=== PATIENT | female | born 1990 | race Caucasian/White ===

== ENCOUNTER 2018-01-03 13:13 | Emergency (ER) | payer SELFPAY ==
[2018-01-03 13:26] VITALS: TEMP 99.9
[2018-01-03] MEDS ORDERED: SODIUM CHLORIDE 0.9% 1000ML 1,000 ML IVS ONE (13:54)
[2018-01-03] MEDS ORDERED: ONDANSETRON INJ 4 MG/2 ML VIAL IV ONE (13:54)
--- NOTE | 2018-01-03 14:34 | RAD ---
PROCEDURE: XR Chest, 2 Views CLINICAL INDICATION: The patient is 27 years old and is Female; cough TECHNIQUE: Frontal and lateral views of the chest. COMPARISON: No relevant prior studies available. FINDINGS: LUNGS: Unremarkable. No consolidation. EKG leads incidentally noted. PLEURAL SPACE: Unremarkable. No pneumothorax. HEART: Unremarkable. No cardiomegaly. MEDIASTINUM: Unremarkable. BONES/JOINTS: Unremarkable.No acute fracture noted. No dislocation. IMPRESSION: No active disease is seen in the chest. Electronically signed by: Amauri Johnson MD 01/03/2018 2:32 PM CDT
[2018-01-03 15:31] VITALS: BP 118/52; O2SAT 99
--- NOTE | 2018-01-03 15:45 | ED.PDOC ---
History of Present Illness - General Chief Complaint: Fever Stated Complaint: cough, fever, dizziness, n/v/d Time Seen by Provider: 01/03/18 13:53 Source: patient Exam Limitations: no limitations - History of Present Illness Initial Comments: Persistent cough with intermittent fevers, vomiting & diarrhea. Feels terrible. Timing/Duration: 1 week Severity: moderate Improving Factors: nothing Worsening Factors: nothing Associated Symptoms: cough, fever/chills, headaches, loss of appetite, malaise, nausea/vomiting, weakness Allergies/Adverse Reactions: Allergies Erythromycin Allergy (Verified 02/27/14 10:01) Home Medications: Ambulatory Orders Levothyroxine Sodium [Synthroid] 112 mcg PO DAILY 09/10/14 Ferrous Sulfate 325 mg PO ROSALIA-OTH-DAY 10/06/14 Vitamin [Calna] 1 tab PO DAILY 10/06/14 Acetaminophen W/ Codeine [Tylenol W/ CODEINE #3] 1 - 2 ea PO Q8H PRN #16 Ibuprofen [Motrin Tab] 600 mg PO Q8H #20 tab 10/07/14 Ondansetron [Zofran Odt] 4 mg PO Q4H PRN #10 tab 01/03/18 Tramadol HCl 50 mg PO Q8HR PRN 4 Days #12 tab 01/03/18 Review of Systems - Review of Systems Constitutional: States: see HPI, fever, malaise EENTM: States: nose congestion. Denies: eye pain, ear pain, throat pain, mouth pain Respiratory: States: cough. Denies: short of breath Cardiology: States: no symptoms reported Gastrointestinal/Abdominal: States: abdominal pain, diarrhea, nausea, vomiting Genitourinary: States: no symptoms reported Musculoskeletal: States: muscle pain. Denies: back pain, neck pain Skin: States: no symptoms reported Neurological: States: headache, weakness Endocrine: States: no symptoms reported Past Medical History (General) - Patient Medical History Hx Seizures: No Hx Stroke: No Hx Dementia: No Hx Asthma: No Hx of COPD: No Hx Cardiac Disorders: No Hx Congestive Heart Failure: No Hx Pacemaker: No Hx Hypertension: No Hx Thyroid Disease: No Hx Diabetes: No Hx Gastroesophageal Reflux: No Hx Renal Disease: Yes Hx Cancer: No Hx of HIV: No Hx Hepatitis C: No Hx MRSA: No Surgical History: other - Vaccination History Hx Influenza Vaccination: No - Social History Hx Tobacco Use: No Hx Alcohol Use: No Hx Substance Use: No Hx Substance Use Treatment: No Hx Depression: No - Female History Hx Last Menstrual Period: 01/07/14 Patient : Yes - 19 weeks Expected Date of Delivery:: 10/13/14 Family Medical History - Family History Mother Living Status: Still Living Hx Family Asthma: No Hx Family Congestive Heart Failure: Yes Hx Family Hypertension: Yes Hx Family Stroke: Yes Hx Cardiac Disease: Yes Hx Family Diabetes: Yes Hx Family Cancer: Yes Hx Family;Other: Thyroid problem Physical Exam - Physical Exam General Appearance: Alert, Anxious, No apparent distress Ears, Nose, Throat: hearing grossly normal, normal ENT inspection Neck: full range of motion, supple, normal inspection Respiratory: lungs clear, normal breath sounds, no respiratory distress, other - coughing Cardiovascular/Chest: regular rate, rhythm, no edema, no gallop, no JVD, no murmur Gastrointestinal/Abdominal: non tender, soft, no organomegaly Extremity: normal inspection, no pedal edema, normal capillary refill Neurologic: alert, normal mood/affect, oriented x 3 Skin Exam: normal color, warm/dry Progress - Progress Progress: 01/03/18 15:43 Feels better. No vomiting here. Mild headache. 123/55; 93; 16; 100%. Departure - Departure Clinical Impression: Hypokalemia, Volume depletion Vomiting Qualifiers: Vomiting type: unspecified Vomiting Intractability: unspecified Nausea presence : with nausea Qualified Code(s): R11.2 - Nausea with vomiting, unspecified Time of Disposition: 15:45 Disposition: Discharge to Home or Self Care Condition: Good Departure Forms: ED Discharge - Pt. Copy, Patient Portal Self Enrollment Instructions: Hypokalemia (DC), Nausea and Vomiting, Adult Diet: full liquid diet Referrals: Frank De León MD [Active Staff] - 01/05/18 Prescriptions: Tramadol HCl 50 mg PO Q8HR PRN 4 Days #12 tab PRN Reason: Moderate Pain Ondansetron [Zofran Odt] 4 mg PO Q4H PRN #10 tab PRN Reason: Vomiting Home Medications: Ambulatory Orders Levothyroxine Sodium [Synthroid] 112 mcg PO DAILY 09/10/14 Ferrous Sulfate 325 mg PO ROSALIA-OTH-DAY 10/06/14 Vitamin [Calna] 1 tab PO DAILY 10/06/14 Acetaminophen W/ Codeine [Tylenol W/ CODEINE #3] 1 - 2 ea PO Q8H PRN #16 Ibuprofen [Motrin Tab] 600 mg PO Q8H #20 tab 10/07/14 Ondansetron [Zofran Odt] 4 mg PO Q4H PRN #10 tab 01/03/18 Tramadol HCl 50 mg PO Q8HR PRN 4 Days #12 tab 01/03/18
== END 2018-01-03 16:10 | disposition home or self-care (01) ==
LOC: ER 13:13
DX: R11.2 Nausea with vomiting, unspecified (principal); E87.6 Hypokalemia; E86.9 Volume depletion, unspecified; R19.7 Diarrhea, unspecified
CPT/HCPCS: 71046; 80053; 81025; 85025; J2405; J7030

== ENCOUNTER 2019-08-12 10:22 | Emergency (ER) | payer SELFPAY ==
[2019-08-12] MEDS ORDERED: diazePAM INJ 10 MG/2 ML SYG IV ONE (10:43)
[2019-08-12] MEDS ORDERED: KETOROLAC TROMETHAMINE INJ 30 MG/ML VIAL IV ONE (10:44)
[2019-08-12] MEDS ORDERED: HYDROmorphone HCL INJ 2 MG/ML VIAL IV ONE (10:44)
[2019-08-12] MEDS ORDERED: DEXAMETHASONE INJ 10 MG/ML VIAL IV ONE (10:44)
[2019-08-12] MEDS ORDERED: ONDANSETRON INJ 4 MG/2 ML VIAL ONE (10:47)
[2019-08-12] MEDS ORDERED: ONDANSETRON INJ 4 MG/2 ML VIAL IV ONE (11:11)
--- NOTE | 2019-08-12 11:29 | ED.PDOC ---
History of Present Illness - General Chief Complaint: Abdominal Pain Stated Complaint: Back Pain, ABD pain, N/v Time Seen by Provider: 08/12/19 10:42 Source: patient, RN notes reviewed, Vital Signs reviewed Exam Limitations: no limitations - History of Present Illness Initial Comments: Patient is a 28-year-old white female who presents in extremis. Patient complains of slow onset of worsening back pain today that now radiates to her stomach causing her to have nausea and vomiting secondary to the pain. Patient denies any other symptoms. Patient denies any headache, dizziness, chest pain, shortness of breath, diarrhea. She denies any perineal numbness. Patient states that the pain is stabbing in nature. It is 10/10. It radiates down her left leg. Similar to her previous sciatica except much worse. Patient denies any urinary/fecal incontinence/retention. Pain is worse with movement or laying on her back. It is better when she lays on her side. Timing/Duration: 1-3 hours Severity: severe Improving Factors: immobilization, rest Worsening Factors: movement Associated Symptoms: nausea/vomiting Allergies/Adverse Reactions: Allergies Erythromycin Allergy (Verified 02/27/14 10:01) Home Medications: Ambulatory Orders Acetaminophen W/ Codeine [Tylenol W/ CODEINE #3] 1 ea PO Q6H #12 08/12/19 Ketorolac Tromethamine [Toradol Tabs] 10 mg PO Q6H #20 tab 08/12/19 Ondansetron [Ondansetron Odt] 4 mg PO Q6H PRN #20 tab 08/12/19 Review of Systems - Review of Systems Constitutional: States: no symptoms reported, see HPI. Denies: chills, fever EENTM: States: no symptoms reported, see HPI Respiratory: States: no symptoms reported, see HPI. Denies: cough, short of breath, wheezing Cardiology: States: no symptoms reported, see HPI. Denies: chest pain, palpit ations, syncope Gastrointestinal/Abdominal: States: abdominal pain - Mild, nausea, vomiting Genitourinary: States: no symptoms reported. Denies: discharge, dysuria, frequency, hematuria Musculoskeletal: States: back pain - Severe. Denies: neck pain Skin: States: no symptoms reported Neurological: States: anxiety. Denies: headache, numbness, paresthesia, tingling, tremors, weakness Endocrine: States: no symptoms reported Hematologic/Lymphatic: States: no symptoms reported All other Systems: Reviewed and Negative Past Medical History (General) - Patient Medical History Hx Seizures: No Hx Stroke: No Hx Dementia: No Hx Asthma: No Hx of COPD: No Hx Cardiac Disorders: No Hx Congestive Heart Failure: No Hx Pacemaker: No Hx Hypertension: No Hx Thyroid Disease: Yes - Kiara's disease Hx Diabetes: No Hx Gastroesophageal Reflux: No Hx Renal Disease: Yes Hx Cancer: No Hx of HIV: No Hx Hepatitis C: No Hx MRSA: No - Vaccination History Hx Influenza Vaccination: No - Social History Hx Tobacco Use: No Hx Alcohol Use: Yes Hx Substance Use: Yes - marijuana daily Hx Substance Use Treatment: No Hx Depression: No - Activities of Daily Living Hospice Agency (if applicable):: None - Female History Patient is a Female of Child Bearing Age (10 -59 yrs old): Yes Hx Last Menstrual Period: 01/07/14 Patient : No Expected Date of Delivery:: 10/13/14 - Triage Comment ED Triage Comment: pt voices severe lower back pain, abdominal pain with nausea and vomiting that started this morning. Family Medical History - Family History Mother Living Status: Still Living Hx Family Asthma: No Hx Family Congestive Heart Failure: Yes Hx Family Hypertension: Yes Hx Family Stroke: Yes Hx Cardiac Disease: Yes Hx Family Diabetes: Yes Hx Family Cancer: Yes Hx Family;Other: Thyroid problem Physical Exam - Physical Exam General Appearance: Agitated, Alert, Anxious, Obvious distress, Restless, Well Developed, Well Hydrated, Well Nourished Eye Exam: bilateral normal Ears, Nose, Throat: hearing grossly normal, normal ENT inspection, normal pharynx Neck: non-tender, full range of motion, supple Respiratory: chest non-tender, lungs clear, normal breath sounds, no respiratory distress, no accessory muscle use Cardiovascular/Chest: normal peripheral pulses, regular rate, rhythm, no edema, no gallop, no JVD, no murmur Peripheral Pulses: radial,right: 2+, radial,left: 2+ Gastrointestinal/Abdominal: normal bowel sounds, non tender, soft, no organomegaly, no pulsatile mass Back Exam: no CVA tenderness, no vertebral tenderness, decreased range of motion, other - Tenderness to palpation over the sciatic notch on the left side Extremity: normal inspection, no pedal edema, no calf tenderness, normal capillary refill 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 08/12/19 13:17 Patient's pain has been markedly reduced. She is now 05/07. She was given a cocktail of medications, and therefore, I am unsure as to what caused most of the pain reduction. Urine showed large blood and therefore I obtained a CT scan of the abdomen and pelvis. It showed that she is got a 3 mm stone in the proximal ureter. I suspect this is the source of her pain. Plan on discharge home with follow-up with her PCP in 3 to 5 days. I discussed this plan of care with the patient and her boyfriend and they voiced understanding and agreement with the plan of care. I will discharge the patient with a prescription for Tylenol with codeine, Toradol and some Zofran ODT. Joe Goldberg M.D. #[id number] - Results/Orders Results/Orders: Laboratory Results - last 24 hr 08/12/19 08/12/19 08/12/19 10:45 10:45 10:45 WBC 11.8 H RBC 4.56 Hgb 14.5 Hct 42.2 MCV 92.6 MCH 31.8 H MCHC 34.3 RDW 13.2 Plt Count 324 MPV 10.0 Absolute Neuts (auto) 9.40 H Absolute Lymphs (auto) 1.70 Absolute Monos (auto) 0.40 Absolute Eos (auto) 0.00 Absolute Basos (auto) 0.20 H Neutrophils % 80.2 H Lymphocytes % 14.3 L Monocytes % 3.5 Eosinophils % 0.2 L Basophils % 1.8 Sodium 139 Potassium 2.9 L Chloride 106 Carbon Dioxide 22 Anion Gap 13.9 BUN 12 Creatinine 0.94 BUN/Creatinine Ratio 12.8 Random Glucose 119 H Serum Osmolality 278.4 Calcium 9.2 Total Bilirubin 0.6 AST 30 ALT 22 Alkaline Phosphatase 51 Serum Total Protein 8.1 Albumin 4.3 Globulin 3.8 H Albumin/Globulin Ratio 1.1 Serum HCG, Qual Negative Urine Color Urine Appearance Urine pH Ur Specific Republic Urine Protein Urine Glucose (UA) Urine Ketones Urine Blood Urine Nitrite Urine Bilirubin Urine Urobilinogen Ur Leukocyte Esterase Urine RBC Urine WBC Ur Epithelial Cells Urine Bacteria Urine HCG, Qual Cancelled 08/12/19 11:30 WBC RBC Hgb Hct MCV MCH MCHC RDW Plt Count MPV Absolute Neuts (auto) Absolute Lymphs (auto) Absolute Monos (auto) Absolute Eos (auto) Absolute Basos (auto) Neutrophils % Lymphocytes % Monocytes % Eosinophils % Basophils % Sodium Potassium Chloride Carbon Dioxide Anion Gap BUN Creatinine BUN/Creatinine Ratio Random Glucose Serum Osmolality Calcium Total Bilirubin AST ALT Alkaline Phosphatase Serum Total Protein Albumin Globulin Albumin/Globulin Ratio Serum HCG, Qual Urine Color Dk yellow H Urine Appearance Cloudy Urine pH 6.0 Ur Specific Republic >= 1.030 Urine Protein 100 H Urine Glucose (UA) Negative Urine Ketones Trace Urine Blood Large H Urine Nitrite Negative Urine Bilirubin Small H Urine Urobilinogen 0.2 Ur Leukocyte Esterase Negative Urine RBC >50 H Urine WBC 0 Ur Epithelial Cells 3-5 Urine Bacteria 0 Urine HCG, Qual EXAM DESCRIPTION: Abdoment/Pelvis w/o Contrast: Computed Tomography. CLINICAL HISTORY: flank pain and hematuria COMPARISON: None. TECHNIQUE: Spiral-axial scans at 2.5 x 2.5 mm intervals through the abdomen and pelvis, patient prone position. Coronal and sagittal 2.0 mm reconstructions. No IV or oral contrast. Total Exam DLP: 546 mGy-cm. This exam was performed according to our departmental CT dose-optimization program which includes automated exposure control, adjustment of the mA and/or kV according to patient size and/or use of iterative reconstruction technique; to reduce radiation dose to as low as reasonably achievable (ALARA). FINDINGS: Kidneys and Ureters: Minimal hydronephrosis right kidney with a 3 mm stone in the proximal left ureter. No stones more distal. No perirenal fluid bilaterally. Tiny 1 mm stone in the collecting system of the right kidney with inferior radiodense material. No hydronephrosis or perirenal fluid. Right ureter is negative. Pelvic Organs: Urinary bladder almost empty with no radiodense stones. Minimal fluid in the cul-de-sac. Uterus and ovaries visualized with ov nicolas follicles. Lung and pleura bases: Negative. Liver, spleen, stomach, and adrenal glands: Unremarkable. Pancreas, Gallbladder, Ducts: Gallbladder visualized. Other organs negative. Aorta: Unremarkable. Small Bowel: Normal caliber. Terminal Ileum/Cecum: Normal caliber including Appendix. No surrounding inflammatory changes. Colon: Negative. Mesentery: No free air or free fluid. 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 Narrowing of the L5-S1 disc space. Abdominal Wall/Back Soft Tissues: Unremarkable. IMPRESSION: 1. 3 mm radiodense stone in the proximal left ureter with mild left hydronephrosis but no perirenal fluid. No distal left ureteral stones. No ra diodense stones in the bilateral kidneys, right ureter, or urinary bladder. 2. Minimal fluid in the cul-de-sac.. Bilateral ovarian follicles. 3. 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 Transitional lumbosacral vertebra can be a source of abnormal biomechanics in a cause of low back pain. Decreased disc space may be anatomic or indicate disc desiccation. Electronically signed by: Micah Tanner MD 08/12/2019 1:07 PM CDT Departure - Departure Clinical Impression: Ureterolithiasis, Renal colic on left side Hematuria Qualifiers: Hematuria type: gross Qualified Code(s): R31.0 - Gross hematuria Time of Disposition: 13:20 Disposition: Discharge to Home or Self Care Condition: Good Departure Forms: ED Discharge - Pt. Copy, Patient Portal Self Enrollment Instructions: DI for Abdominal Pain-Adult, Kidney Stones (DC) Diet: resume usual diet Activity: increase activity as tolerated Referrals: LANA STAPLES IV, INTERIOR DESIGN PRINCIPAL [Primary Care Provider] - 1 Week Prescriptions: Acetaminophen W/ Codeine [Tylenol W/ CODEINE #3] 1 ea PO Q6H #12 Ketorolac Tromethamine [Toradol Tabs] 10 mg PO Q6H #20 tab Ondansetron [Ondansetron Odt] 4 mg PO Q6H PRN #20 tab PRN Reason: Nausea Home Medications: Ambulatory Orders Acetaminophen W/ Codeine [Tylenol W/ CODEINE #3] 1 ea PO Q6H #12 08/12/19 Ketorolac Tromethamine [Toradol Tabs] 10 mg PO Q6H #20 tab 08/12/19 Ondansetron [Ondansetron Odt] 4 mg PO Q6H PRN #20 tab 08/12/19
--- NOTE | 2019-08-12 13:08 | CT ---
EXAM DESCRIPTION: Abdoment/Pelvis w/o Contrast: Computed Tomography. CLINICAL HISTORY: flank pain and hematuria COMPARISON: None. TECHNIQUE: Spiral-axial scans at 2.5 x 2.5 mm intervals through the abdomen and pelvis, patient prone position. Coronal and sagittal 2.0 mm reconstructions. No IV or oral contrast. Total Exam DLP: 546 mGy-cm. This exam was performed according to our departmental CT dose-optimization program which includes automated exposure control, adjustment of the mA and/or kV according to patient size and/or use of iterative reconstruction technique; to reduce radiation dose to as low as reasonably achievable (ALARA). FINDINGS: Kidneys and Ureters: Minimal hydronephrosis right kidney with a 3 mm stone in the proximal left ureter. No stones more distal. No perirenal fluid bilaterally. Tiny 1 mm stone in the collecting system of the right kidney with inferior radiodense material. No hydronephrosis or perirenal fluid. Right ureter is negative. Pelvic Organs: Urinary bladder almost empty with no radiodense stones. Minimal fluid in the cul-de-sac. Uterus and ovaries visualized with ovarian follicles. Lung and pleura bases: Negative. Liver, spleen, stomach, and adrenal glands: Unremarkable. Pancreas, Gallbladder, Ducts: Gallbladder visualized. Other organs negative. Aorta: Unremarkable. Small Bowel: Normal caliber. Terminal Ileum/Cecum: Normal caliber including Appendix. No surrounding inflammatory changes. Colon: Negative. Mesentery: No free air or free fluid. 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 Narrowing of the L5-S1 disc space. Abdominal Wall/Back Soft Tissues: Unremarkable. IMPRESSION: 1. 3 mm radiodense stone in the proximal left ureter with mild left hydronephrosis but no perirenal fluid. No distal left ureteral stones. No radiodense stones in the bilateral kidneys, right ureter, or urinary bladder. 2. Minimal fluid in the cul-de-sac.. Bilateral ovarian follicles. 3. 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 Transitional lumbosacral vertebra can be a source of abnormal biomechanics in a cause of low back pain. Decreased disc space may be anatomic or indicate disc desiccation. Electronically signed by: Micah Tanner MD 08/12/2019 1:07 PM CDT
[2019-08-12 13:44] VITALS: BP 108/54; TEMP 98.2; O2SAT 96
== END 2019-08-12 13:43 | disposition home or self-care (01) ==
LOC: ER 10:22
DX: N20.1 Calculus of ureter (principal); R11.2 Nausea with vomiting, unspecified; R31.0 Gross hematuria; R10.9 Unspecified abdominal pain
CPT/HCPCS: 74176; 80053; 81001; 84703; 85025; J1100; J1170; J1885; J2405; J3360

== ENCOUNTER 2020-05-15 22:55 | Emergency (ER) | payer SELFPAY ==
[2020-05-16] MEDS ORDERED: CHLORHEXIDINE GLUCONATE 4 % 15 ML UD TOP ONE (00:08)
[2020-05-16 00:18] VITALS: TEMP 98.1
[2020-05-16] MEDS ORDERED: LIDOCAINE 1% 10 ML VIAL INJ ONE (00:19)
[2020-05-16] MEDS ORDERED: TETANUS,DIPHTHERIA,PERTUSSIS 1 EA SYG IM ONE (00:19)
--- NOTE | 2020-05-16 01:30 | ED.PDOC ---
History of Present Illness - General Chief Complaint: Laceration Stated Complaint: Laceration Time Seen by Provider: 05/16/20 00:55 - History of Present Illness Initial Comments: Patient states she cut her left ring finger about 4 PM while cleaning a knife while doing dishes. Patient complains some slight numbness around the area of the laceration the finger. She denies loss of range of motion. She is not up-to-date on her tetanus. Timing/Duration: 4-6 hours Severity: moderate Improving Factors: nothing Worsening Factors: nothing Associated Symptoms: denies symptoms Allergies/Adverse Reactions: Allergies Erythromycin Allergy (Verified 02/27/14 10:01) Past Medical History (General) - Patient Medical History Hx Seizures: No Hx Stroke: No Hx Dementia: No Hx Asthma: No Hx of COPD: No Hx Cardiac Disorders: No Hx Congestive Heart Failure: No Hx Pacemaker: No Hx Hypertension: No Hx Thyroid Disease: Yes Hx Diabetes: No Hx Gastroesophageal Reflux: No Hx Renal Disease: No Hx Cancer: No Hx of HIV: No Hx Hepatitis C: No Hx MRSA: No Surgical History: other - Vaccination History Hx Tetanus, Diphtheria Vaccination: No Hx Influenza Vaccination: No - Social History Hx Tobacco Use: No Hx Chewing Tobacco Use: No Hx Alcohol Use: Yes Hx Substance Use: No Hx Substance Use Treatment: No Hx Depression: No Feels Threatened In Home Enviroment: No Feels Threatened In a Relationship: No Hx Physical Abuse: No Hx Emotional Abuse: No Hx Suspected Abuse: No - Female History Patient is a Female of Child Bearing Age (10 -59 yrs old): Yes Hx Last Menstrual Period: 01/07/14 Patient : No Expected Date of Delivery:: 10/13/14 - Triage Comment ED Triage Comment: The patient bandaids were removed from the left index and ring finger. There was a V shaped laceration to the left ring finger with no active bleeding noted. She also had a small V shaped laceration to the left index finger with no active bleeding noted. She rated her pain a 7 on the pain scale. She had no other noted complaints or obvious signs of injury noted. Family Medical History - Family History Mother Living Status: Still Living Hx Family Asthma: No Hx Family Congestive Heart Failure: Yes Hx Family Hypertension: Yes Hx Family Stroke: Yes Hx Cardiac Disease: Yes Hx Family Diabetes: Yes Hx Family Cancer: Yes Hx Family;Other: Thyroid problem Physical Exam - Physical Exam General Appearance: Alert, Anxious Eye Exam: bilateral normal Ears, Nose, Throat: normal ENT inspection Neck: non-tender, supple Respiratory: lungs clear Cardiovascular/Chest: normal peripheral pulses Gastrointestinal/Abdominal: normal bowel sounds, non tender Back Exam: normal inspection Extremity: other - Left ring finger middle phalanx volar surface has a 2 cm full-thickness flap laceration with a distal base.There is no loss of sensation distally. There is full range of motion with flexion on the PIP and DIP joints. 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, no motor/sensory deficits, oriented x 3 Skin Exam: normal color Progress - Results/Orders Results/Orders: Vital Signs - 24 hr 05/16/20 05/16/20 05/16/20 00:00 01:00 01:35 Temperature 98.1 F Pulse Rate [ 84 75 78 Pulse Ox] Respiratory 18 16 18 Rate Blood Pressure 110/74 110/53 101/66 [Left Arm] O2 Sat by Pulse 99 100 98 Oximetry Procedures - Laceration/Wound Repair Finger Wound Length (cm): 2 Wound's Depth, Shape: superficial, flap Wound Explored: clean Irrigated w/ Saline (cc's): 80 Betadine Prep?: Yes Anesthesia: 1% Lidocaine Volume Anesthetic (cc's): 4 Wound Debrided: minimal Wound Repaired With: sutures Suture Size/Type: 4:0 Layer Closure?: No Departure - Departure Clinical Impression: Laceration of finger of left hand Qualifiers: Encounter type: initial encounter Finger: ring finger Damage to nail status: without damage Foreign body presence: without foreign body Qualified Code(s): S61.215A - Laceration without foreign body of left ring finger without damage to nail, initial encounter ICD-10 Supporting Text: 2 cm duration volar surface middle phalanx left ring finger without nerve or tendon injury. Time of Disposition: 01:30 Disposition: Discharge to Home or Self Care Condition: Good Departure Forms: ED Discharge - Pt. Copy, Patient Portal Self Enrollment Instructions: DI for Laceration Repair, Wound Care (DC) Referrals: LANA STAPLES IV HEAD KILN OPERATOR [Primary Care Provider] - 1-2 Weeks Additional Instructions: Keep laceration clean and dry, Return for Suture removal in 8 days. If wound appears infected return for recheck. Use [id number] ibuprofen or Tylenol for pain.
[2020-05-16 01:36] VITALS: BP 101/66; O2SAT 98
[2020-05-16] MEDS ORDERED: NEOMYCIN-BACITRACIN-POLYMYXIN 0.9 GM UD TOP ONE (01:41)
== END 2020-05-16 01:53 | disposition home or self-care (01) ==
LOC: ER 22:55
DX: S61.215A Laceration without foreign body of left ring finger without damage to nail, initial encounter (principal); W26.0XXA Contact with knife, initial encounter; Y93.G1 Activity, food preparation and clean up; Z88.1 Allergy status to other antibiotic agents; E07.9 Disorder of thyroid, unspecified; Y92.9 Unspecified place or not applicable